=== PATIENT | male | born 1965 | race Caucasian/White ===

== ENCOUNTER 2019-07-23 08:24 | Outpatient (CLI) | payer OTHER, SELFPAY ==
--- NOTE | ~2019-07-23 | XR_ITS ---
XR chest 2V DATE: 07/23/2019 08:49 INDICATION: Shortness of breath TECHNIQUE: PA and lateral views COMPARISON: None FINDINGS: Normal heart size. No hilar or mediastinal enlargement. No pulmonary infiltrate or consolid ation, pleural effusion or pulmonary vascular congestion or pneumothorax. There is mild scoliosis and degenerative change of the thoracic spine. IMPRESSION: No active cardiopulmonary disease Reviewed, dictated and finalized at location [facility]. [employer]
[2019-07-23 09:43] LABS: Add Urine Microscopic? NO; Appearance Urine Clear (Clear); Bilirubin Urine Negative (Negative); Blood Urine Negative (Negative); Color Urine Yellow (Yellow); Glucose Urine UA Negative (Negative); Ketones Urine Negative (Negative); Leukocyte Esterase Ur Negative LEU/UL (NEGATIVE); Nitrate Urine Negative (Negative); Protein Urine Negative (Negative); Specific Grav Ur 1.019 (1.001-1.035); Urobilinogen Urine Negative mg/dL (<2.0)
[2019-07-23 09:54] LABS: Alanine Aminotransferase 23 U/L (4-50); Albumin Level 4.7 g/dL (3.5-5.1); Alkaline Phosphatase 81 U/L (38-126); Aspartate Amino Transferase 24 U/L (17-59); Bilirubin,Total 0.4 mg/dL (0.2-1.3); Blood Urea Nitrogen 18 mg/dL (9-20); Calcium 9.4 mg/dL (8.4-10.2); Carbon Dioxide 28 mmol/L (22-30); Chloride 100 mmol/L (98-107); Cholesterol 240 mg/dL (0-200); Estimated Glomerular Filt Rate > 60; Glucose 102 mg/dL (75-110); HDL Direct 58 mg/dL; Potassium 4.6 mmol/L (3.4-5.0); Sodium 140 mmol/L (137-145); Triglycerides 231 mg/dL (<150)
[2019-07-23 10:05] LABS: LDL Cholesterol Direct 146 mg/dL
[2019-07-23 10:26] LABS: Prostate Specific Antigen 1.2 ng/mL (< OR = 4.0)
== END 2019-07-23 08:25 | disposition home or self-care (01) ==
PROVIDERS: PCP Family Medicine; Visit Provider Family Medicine
DX: R06.02 Shortness of breath (principal); Z79.899 Other long term (current) drug therapy; R82.998 Other abnormal findings in urine; R03.0 Elevated blood-pressure reading, without diagnosis of hypertension; R61 Generalized hyperhidrosis; Z12.5 Encounter for screening for malignant neoplasm of prostate; E78.5 Hyperlipidemia, unspecified; M41.84 Other forms of scoliosis, thoracic region; M51.34 Other intervertebral disc degeneration, thoracic region
CPT/HCPCS: 36415; 71046; 80053; 80061; 81003; 84153; 84443; G0103

== ENCOUNTER 2019-07-30 10:40 | Outpatient (CLI) | payer OTHER, SELFPAY ==
--- NOTE | 2019-08-02 18:39 | WPDPFTINT ---
PFT Interpretation PFT Interpretation: DOS: 07/30/2019 REQUESTING: Dr. Carmona REASON FOR TESTING: Shortness of breath PULMONARY FUNCTION TESTS Results are reproducible. Spirometry: Mild decrease in FEV1, 72% predicted. Normal FVC 94%. Decreased FEV1% consistent with airflow obstruction. Severe decrease in [id number]%, 35%. After bronchodilator, there is a significant response with 12% increase in FEV1 which is greater than 200 ml and 30% increase in [id number]%. Lung volumes: Total lung capacity is mildly increased 125%. Residual volume is 163%, severely increased. Increased airway resistance 236%. Diffusion: DLCO is 93%, normal. Flow volume loop: Scooping of the expiratory limb. IMPRESSION: Mild obstructive ventilatory impairment which is severe in the small airways, good response to bronchodilator. Mild hyperinflation, severe air trapping. This pattern can be seen in asthma. Pratibha Paul MD
--- NOTE | 2019-08-02 18:50 | P.PCNPFT_ITS ---
PFT Interpretation PFT Interpretation: DOS: 07/30/2019 REQUESTING: Dr. Paul REASON FOR TESTING: Shortness of breath PULMONARY FUNCTION TESTS Results are reproducible. Spirometry: Normal FEV1, FVC, and FEV1%. No change with bronchodilator. FEF25- 75% is 84%, increases 22% with bronchodilator. Lung volumes: Normal TLC and RV. Increase in RV/TLC ratio consistent with air trapping. Normal airway resistance. Diffusion: DLCO 65%, mildly decreased. Flow volume loop: Normal. IMPRESSION: Normal spirometry, mild air trapping which implies obstruction, and mild diffusion impairment. Lack of response to bronchodilator should not preclude use if clinically indicated. Pratibha Paul MD
--- NOTE | 2019-08-02 18:55 | WPDSIXMINUTE ---
Six Minute Walk Six Minute Walk: DOS: 07/30/2019 REQUESTING: Dr. Paul REASON FOR TESTING: Shortness of breath SIX MINUTE WALK This test was conducted per ATS guidelines. Initial saturation was 98%, pulse 76. The patient walked for 6 minutes without stopping, completing 1000 feet/304 meters. Saturation at the end of the test was 96% and pulse was 89. IMPRESSION: Normal walk study without desaturation. No supplemental O2 needed with exertion. Pratibha Paul MD
== END 2019-07-30 10:41 | disposition home or self-care (01) ==
LOC: ANHPFT 10:42
PROVIDERS: PCP Family Medicine; Visit Provider Family Medicine
DX: R06.02 Shortness of breath (principal); R94.2 Abnormal results of pulmonary function studies
CPT/HCPCS: 94060; 94726; 94729